=== PATIENT | female | born 1995 | race Caucasian/White ===

== ENCOUNTER 2016-04-09 17:59 | Emergency (ER) | payer OTHER ==
[~2016-04-09] VITALS: Ht 175.3 cm; Wt 63.6 kg
[2016-04-09 18:01] VITALS: BP 121/83; TEMP 97.7
[2016-04-09] MEDS ORDERED: CELEXA 20MG20 MG/TAB PO (18:05)
[2016-04-09 19:37] VITALS: PULSE 72
== END 2016-04-09 19:38 | disposition home or self-care (01) ==
LOC: COL.ER 17:59
DX: S61.214A Laceration without foreign body of right ring finger without damage to nail, initial encounter (principal); S61.216A Laceration without foreign body of right little finger without damage to nail, initial encounter; W22.8XXA Striking against or struck by other objects, initial encounter; Y92.009 Unspecified place in unspecified non-institutional (private) residence as the place of occurrence of the external cause

== ENCOUNTER → 2016-06-20 | Outpatient (REF) ==
[~2016-06-20] MED LIST: CELEXA 20MG20 MG/TAB PO
== END ==
LOC: WSOH 11:15
DX: Z01.89 Encounter for other specified special examinations (principal)